=== PATIENT | male | born 1955 | race Caucasian/White ===

== ENCOUNTER 2019-08-08 20:06 | Inpatient (IN) | payer SELFPAY ==
[~2019-08-08] VITALS: Ht 180.3 cm; Wt 143.6 kg
[~2019-08-08 20:06] MED LIST: ALLO300 PO; ASPI81CH PO; BACL10 PO; CAPHYD PO; CYCL10 PO; HYDCHL25 PO; IBUHYD PO; IBUP800 PO; LISI20 PO; NAPR500 PO; Norco 5-325 Ta1 EACH PO; RANI150 PO; TESTOSTERONE SQ; TESTTP TOP; TRAZ50 PO; Zestril40 MG PO
[2019-08-08 20:59] LABS: BASOPHILS ABSOLUTE AUTO 0.02 K/mm3 (0.00-0.23); BASOPHILS PERCENT AUTO 0 % (0-2); EOSINOPHILS ABSOLUTE AUTO 0.19 K/mm3 (0.00-0.68); EOSINOPHILS PERCENT AUTO 2 % (0-6); Hematocrit 47.7 % (37.0-53.0); Hemoglobin 15.6 g/dL (13.5-17.5); IMMATURE GRAN ABSOLUTE AUTO 0.02 K/mm3 (0.00-0.10); IMMATURE GRAN PERCENT AUTO 0 % (0-1); LYMPHOCYTES ABSOLUTE AUTO 3.91 K/mm3 (0.84-5.20); LYMPHOCYTES PERCENT AUTO 44 % (21-46); MONOCYTES ABSOLUTE AUTO 0.79 K/mm3 (0.16-1.47); MONOCYTES PERCENT AUTO 9 % (4-13); Mean Corpuscular HGB 31.6 pg (26.0-34.0); Mean Corpuscular HGB Conc 32.7 g/dL (31.5-36.5); Mean Corpuscular Volume 97 fL (80-100); Mean Platelet Volume 11.1 fL (9.1-12.4); NEUTROPHILS ABSOLUTE AUTO 4.03 K/mm3 (1.96-9.15); NEUTROPHILS PERCENT AUTO 45 % (41-73); Platelet Count 213 K/mm3 (150-400); RDW Coefficient Variation 13.2 % (11.7-14.2); RDW Standard Deviation 47.1 fL (35.1-46.3); Red Blood Cell Count 4.93 M/mm3 (4.30-5.90); White Blood Cell Count 8.96 K/mm3 (4.00-11.30)
[2019-08-08 21:21] LABS: Alanine Aminotransfer (ALT/SGP 46 U/L (12-78); Albumin, Blood 3.6 g/dL (3.4-5.0); Albumin/Globulin Ratio 0.8 (0.8-1.8); Alk Phos 118 U/L (50-136); Anion Gap 6 mmol/L (6-16); Aspartate Aminotrans (AST/SGOT 34 U/L (12-37); Bilirubin, Total 0.5 mg/dL (0.1-1.0); Blood Urea Nitrogen 12 mg/dL (8-24); Bun/Creatinine Ratio 13.2 (12.0-20.0); CO2, Blood 26 mmol/L (21-32); Calcium, Blood 9.4 mg/dL (8.5-10.1); Chloride, Blood 110 mmol/L (98-108); Creatinine, Blood 0.91 mg/dL (0.60-1.20); Globulin, Blood 4.3 g/dL (2.2-4.0); Glomerular Filtration Rate >60 (60-); Glucose, Blood 113 mg/dL (70-99); Potassium, Blood 3.5 mmol/L (3.5-5.5); Sodium, Blood 142 mmol/L (136-145); Total Protein, Blood 7.9 g/dL (6.4-8.2)
[2019-08-09 00:16] LABS: International Normalized Ratio 0.94; Prothrombin Time Results 10.1 Sec (9.7-11.5)
[2019-08-09 02:56] LABS: Anion Gap 5 mmol/L (6-16); Blood Urea Nitrogen 12 mg/dL (8-24); Bun/Creatinine Ratio 13.5 (12.0-20.0); CHOL/HDL RATIO 3.5; CO2, Blood 28 mmol/L (21-32); Calcium, Blood 9.2 mg/dL (8.5-10.1); Chloride, Blood 108 mmol/L (98-108); Cholesterol 154 mg/dL (50-200); Creatinine, Blood 0.89 mg/dL (0.60-1.20); Glomerular Filtration Rate >60 (60-); Glucose, Blood 96 mg/dL (70-99); HDL Cholesterol 44 mg/dL (>39); LDL/HDL RATIO 2.1; Low Density Lipoprotein Chol 92 mg/dL (0-110); Potassium, Blood 3.5 mmol/L (3.5-5.5); Sodium, Blood 141 mmol/L (136-145); Triglycerides 91 mg/dL (30-160); Very Low Density Lipoprot Chol 18 mg/dL (6-32)
== END 2019-08-09 15:30 | disposition short-term general hospital (02) | DRG 281 ==
LOC: ER 20:06 → ICUW 23:29 → ER 08-09 00:02 → ICUW 08-09 00:05
PROVIDERS: Physician Assistant; ADMIT Hospitalist
PROC: B2110ZZ Fluoroscopy of Multiple Coronary Arteries using High Osmolar Contrast (ICD-10-PCS; principal; 2019-08-09)
DX: I21.4 Non-ST elevation (NSTEMI) myocardial infarction (principal); Z68.42 Body mass index [BMI] 45.0-49.9, adult; M10.9 Gout, unspecified; I10 Essential (primary) hypertension; E66.01 Morbid (severe) obesity due to excess calories; E78.5 Hyperlipidemia, unspecified; M25.562 Pain in left knee; N20.0 Calculus of kidney; I25.10 Atherosclerotic heart disease of native coronary artery without angina pectoris; Z87.891 Personal history of nicotine dependence; Z91.14 Patient's other noncompliance with medication regimen
CPT/HCPCS: 36415; 71046; 73562-LT; 76937; 80048; 80053; 80061; 83036; 84484; 84550; 85025; 85347; 85610; 85730; 90686; 93005; 93010; 93306; 93454; 99152; 99153; 99284-25; A9270; C1769; C1894; G0008; J0360; J1644; J2250; J3010; J7030; J7040; Q9967

== ENCOUNTER 2020-02-27 19:14 | Emergency (ER) | payer SELFPAY ==
[~2020-02-27] VITALS: Ht 180.3 cm; Wt 145.2 kg
== END 2020-02-27 21:00 | disposition home or self-care (01) ==
LOC: ER 19:14
DX: S81.812A Laceration without foreign body, left lower leg, initial encounter (principal); Z88.5 Allergy status to narcotic agent; Z88.8 Allergy status to other drugs, medicaments and biological substances; Z79.899 Other long term (current) drug therapy; J44.9 Chronic obstructive pulmonary disease, unspecified; I10 Essential (primary) hypertension; E78.5 Hyperlipidemia, unspecified; Z87.891 Personal history of nicotine dependence; Z23 Encounter for immunization; W20.8XXA Other cause of strike by thrown, projected or falling object, initial encounter
CPT/HCPCS: 12002; 73590; 90471; 90714; 99283-25

== ENCOUNTER 2020-04-03 21:53 | Observation (INO) | payer OTHER ==
[~2020-04-03] VITALS: Ht 180.3 cm; Wt 150.5 kg
[2020-04-03 22:46] LABS: Source, Urine Clean Catch
[2020-04-03 22:48] LABS: Bilirubin, Urine Neg (Neg); Blood, Urine 4+ (Neg); Glucose Qualitative, Urine Neg (Neg); Ketones, Urine Neg (Neg); Leukocyte Esterase, Urine 1+ (Neg); Nitrite, Urine Neg (Neg); Protein, Urine Neg (Neg); Urobilinogen, Urine NORM (Normal)
[2020-04-03 22:49] LABS: Appearance, Urine Clear (Clear); Color, Urine Yellow (P-Yellow)
[2020-04-03 22:55] LABS: Bacteria Few /hpf; Red Blood Cells, Urine 0-2 /hpf (0-2); Squamous Epithelial Cells Not Seen /hpf (Few)
[2020-04-03 23:09] LABS: BASOPHILS ABSOLUTE AUTO 0.03 K/mm3 (0.00-0.23); BASOPHILS PERCENT AUTO 0 % (0-2); EOSINOPHILS ABSOLUTE AUTO 0.34 K/mm3 (0.00-0.68); EOSINOPHILS PERCENT AUTO 3 % (0-6); Hematocrit 40.7 % (37.0-53.0); Hemoglobin 13.1 g/dL (13.5-17.5); IMMATURE GRAN ABSOLUTE AUTO 0.02 K/mm3 (0.00-0.10); IMMATURE GRAN PERCENT AUTO 0 % (0-1); LYMPHOCYTES ABSOLUTE AUTO 4.83 K/mm3 (0.84-5.20); LYMPHOCYTES PERCENT AUTO 45 % (21-46); MONOCYTES ABSOLUTE AUTO 0.96 K/mm3 (0.16-1.47); MONOCYTES PERCENT AUTO 9 % (4-13); Mean Corpuscular HGB Conc 32.2 g/dL (31.5-36.5); Mean Corpuscular Volume 100 fL (80-100); Mean Platelet Volume 11.2 fL (9.1-12.4); NEUTROPHILS PERCENT AUTO 43 % (41-73); Platelet Count 192 K/mm3 (150-400); RDW Coefficient Variation 13.6 % (11.7-14.2); RDW Standard Deviation 49.7 fL (35.1-46.3); Red Blood Cell Count 4.09 M/mm3 (4.30-5.90); White Blood Cell Count 10.78 K/mm3 (4.00-11.30)
[2020-04-03 23:26] LABS: Alanine Aminotransfer (ALT/SGP 32 U/L (12-78); Albumin, Blood 3.5 g/dL (3.4-5.0); Albumin/Globulin Ratio 0.9 (0.8-1.8); Alk Phos 141 U/L (50-136); Anion Gap 5 mmol/L (6-16); Aspartate Aminotrans (AST/SGOT 23 U/L (12-37); Bilirubin, Total 0.8 mg/dL (0.1-1.0); Blood Urea Nitrogen 16 mg/dL (8-24); Bun/Creatinine Ratio 15.7 (12.0-20.0); CO2, Blood 26 mmol/L (21-32); Calcium, Blood 9.7 mg/dL (8.5-10.1); Chloride, Blood 112 mmol/L (98-108); Creatinine, Blood 1.02 mg/dL (0.60-1.20); Globulin, Blood 4.1 g/dL (2.2-4.0); Glomerular Filtration Rate >60 (60-); Glucose, Blood 92 mg/dL (70-99); Potassium, Blood 3.9 mmol/L (3.5-5.5); Sodium, Blood 143 mmol/L (136-145); Total Protein, Blood 7.6 g/dL (6.4-8.2)
[2020-04-03] MEDS ORDERED: Carvedilol25 MG PO (23:38)
[2020-04-03] MEDS ORDERED: ATOR20 PO (23:38)
[2020-04-04] MEDS ORDERED: FUROSEMIDE40 MG PO (00:42)
[2020-04-04] MEDS ORDERED: Klor-Con 1010 MEQ PO (00:43)
[2020-04-04] MEDS ORDERED: AMLODIPINE BESYL5 MG PO (00:46)
[2020-04-04 00:47] LABS: CHOL/HDL RATIO 3.1; Cholesterol 120 mg/dL (50-200); HDL Cholesterol 39 mg/dL (>39); LDL/HDL RATIO 1.6; Low Density Lipoprotein Chol 62 mg/dL (0-110); Triglycerides 97 mg/dL (30-160); Very Low Density Lipoprot Chol 19 mg/dL (6-32)
--- NOTE | 2020-04-04 03:00 | NUR ---
PT TO ICU 8 VIA [facility] WITH ED RN @ 0127, PT ALERT AND ORIENTED, AMBULATES WITH SBA FROM [facility] TO HOSPITAL BED. O2 SATURATIONS> 90% ON RA, PT REPORTS WEARING CPAP AT NIGHT FOR SLEEP APNEA, CALL PLACED TO RT FOR HOSPITAL CPAP SET UP. MONITOR SHOWS SINUS RHYTHM WIHT FREQUENT PVC'S AND OCCASIONAL BIGIMENY. PT MEDICATED WITH 10mg LABETALOL FOR HTN. PT WITH BLE SWELLING, MORE SIGNIFICANT TO R LEG, PT REPORTS THIS HAS BEEN NORMAL WITH NUMBNESS TO R LOWER LEG SINCE HEART SURGERY IN AUGUST. DRESSING TO L FAITH OVER WOUND PT STS OCCURED IN JANUARY, WAS SCENE IN ED, WOUND SUTURED AT THAT TIME. PT FOLLOWED UP WITH PCP FOR SUTURE REMOVAL, PT STS A SCAB OVER THE WOUND WAS ACCIDENTLY TAKEN OFF AT THAT TIME AND HAS SINCE BEEN SLOW TO HEAL, PT HAS BEEN DOING HIS OWN WOUND CARE. DRESSING REMOVED WITH SIGNIFICANT AMOUNT OF YELLOW PURULENT DRAINAGE, CALL PLACED TO JONO, ORDER FOR WOUND CULTURE. WOUND CLEANED WITH SKINTEGRITY AND ABSORBANT FOAM DRESSING WITH TAPE APPLIED, SEE PHOTO IN PTS CHART. CALL LIGHT WITHIN REACH.
--- NOTE | 2020-04-04 06:22 | NUR ---
SHIFT SUMMARY PT REMAINS STABLE T/O NIGHT, PT PLACED CPAP ON SELF FOR SLEEP. MONITOR SHOWS DECREASED ECTOPY, PT IN SINUS RHYTHM WITH PVC'S, BP DECREASED AND STABLE, NITRO GTT NOT INDICATED THIS SHIFT. PT TOLERATES PO INTAKE, VOIDS INDEPENDENTLY AND AMBULATES WITH SBA. CALL LIGHT WITHIN REACH, PT USING APPROPRIATELY.
--- NOTE | 2020-04-04 08:00 | NUR ---
INITIAL ASSESSMENT PATIENT RESTING QUIETLY IN BED UPON ENTERING ROOM. PATIENT ALERT AND ORIENTED X 4, AFEBRILE. CALM, PLEASANT AND COOPERATIVE. PATIENT DENIES PAIN. PATIENT REPORTS N/T IN R LEG BUT STATES THAT IT HAS BEEN THIS WAY SINCE THEY TOOK A VESSEL FOR HIS CABG IN AUGUST. PATIENT SBA ONLY BECAUSE OF LINES AND CORDS. PATIENT SATTING 90% AND GREATER ON RA. PATIENT ABLE TO PLACE OWN CPAP FOR SLEEP. PATIENT IN SR WITH PVCS. HR 60S TO 70S. SBP LOW 100S TO 120S. 1+ EDEMA NOTED IN BLES. ABDOMEN MODERATELY DISTENDED; PATIENT STATES NORMAL. PATIENT STATES HE HAS URINARY FREQUENCY SINCE HAVING KIDNEY STONES. URINE DARK YELLOW IN COLOR. WOUND TO L FAITH. 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 NIGHT RN REPORTED THAT WOUND DRAINING A LOT. DRESSING CLEAN, DRY AND INTACT AT THIS TIME. IVS FLUSHED AND SALINE LOCKED. BED LOW, CALL LIGHT IN REACH. WILL CONTINUE TO MONITOR FREQUENTLY THROUGHOUT SHIFT.
--- NOTE | 2020-04-04 12:45 | NUR ---
HR 60S TO 70S. SBP 140S TO 150S. NO ACUTE CHANGES TO NOTE ON. NO COMPLAINTS.
[2020-04-04] MEDS ORDERED: ASPI81CH PO (12:49)
--- NOTE | 2020-04-04 13:28 | NUR ---
PATIENT REMAINED ALERT AND ORIENTED X 4, AFEBRILE. PATIENT HAD NO COMPLAINTS OF PAIN DURING SHIFT. PATIENT REMAINED SATTING 90% AND GREATER ON RA. PATIENT REMAINED IN SR WITH PVCS, HR 60S TO 70S. SBP LOW 100S TO 150S. NO BM THIS SHIFT. PATIENT HAD GOOD APPETITE. PATIENT VOIDED ADEQUATE AMOUNT OF DARK YELLOW COLORED URINE. NO CHANGE TO WOUND OR DRESSING ON L FAITH. IVS REMOVED. PATIENT GIVEN DISCHARGE INFORMATION AND EDUCATION. PATIENT STATED THAT HE UNDERSTOOD ALL INFORMATION. PICKING PATIENT UP. PATIENT TAKEN OUT IN WHEELCHAIR BY SECTION LABORER. ALL BELONGINGS TAKEN WITH PATIENT. DISCHARGE COMPLETE.
== END 2020-04-04 13:30 | disposition home or self-care (01) ==
LOC: ER 21:53 → ICUW 21:54 → ICUE 21:54
PROVIDERS: Emergency Medicine; ADMIT Family Medicine
DX: I16.0 Hypertensive urgency (principal); I63.9 Cerebral infarction, unspecified; J44.9 Chronic obstructive pulmonary disease, unspecified; I10 Essential (primary) hypertension; I25.10 Atherosclerotic heart disease of native coronary artery without angina pectoris; E78.5 Hyperlipidemia, unspecified; G47.33 Obstructive sleep apnea (adult) (pediatric); E66.01 Morbid (severe) obesity due to excess calories; I65.23 Occlusion and stenosis of bilateral carotid arteries; D64.9 Anemia, unspecified; I49.3 Ventricular premature depolarization; Z95.1 Presence of aortocoronary bypass graft; Z79.82 Long term (current) use of aspirin; Z88.5 Allergy status to narcotic agent; Z88.8 Allergy status to other drugs, medicaments and biological substances; Z79.899 Other long term (current) drug therapy; Z87.891 Personal history of nicotine dependence
CPT/HCPCS: 36415; 70450; 80053; 80061; 81001; 85025; 87070; 87075; 87086; 87205; 93005; 93010; 93880; 94660; 99285-25; A9270-GY; G0378; J0360; J1650

== ENCOUNTER 2020-06-30 19:01 | Observation (INO) | payer OTHER ==
[~2020-06-30] VITALS: Ht 182.9 cm; Wt 160.1 kg
[~2020-06-30 19:01] MED LIST changes: +AMLODIPINE BESYL5 MG PO; +ATOR20 PO; +CARV25 PO; +FUROSEMIDE40 MG PO; +Klor-Con 1010 MEQ PO; -Zestril40 MG PO
[2020-06-30 19:15] LABS: BASOPHILS ABSOLUTE AUTO 0.02 K/mm3 (0.00-0.23); BASOPHILS PERCENT AUTO 0 % (0-2); EOSINOPHILS ABSOLUTE AUTO 0.27 K/mm3 (0.00-0.68); EOSINOPHILS PERCENT AUTO 2 % (0-6); Hematocrit 43.7 % (37.0-53.0); Hemoglobin 13.9 g/dL (13.5-17.5); IMMATURE GRAN ABSOLUTE AUTO 0.03 K/mm3 (0.00-0.10); IMMATURE GRAN PERCENT AUTO 0 % (0-1); LYMPHOCYTES ABSOLUTE AUTO 5.17 K/mm3 (0.84-5.20); LYMPHOCYTES PERCENT AUTO 41 % (21-46); MONOCYTES ABSOLUTE AUTO 1.02 K/mm3 (0.16-1.47); MONOCYTES PERCENT AUTO 8 % (4-13); Mean Corpuscular HGB 31.7 pg (26.0-34.0); Mean Corpuscular HGB Conc 31.8 g/dL (31.5-36.5); Mean Corpuscular Volume 100 fL (80-100); Mean Platelet Volume 11.2 fL (9.1-12.4); NEUTROPHILS ABSOLUTE AUTO 6.24 K/mm3 (1.96-9.15); NEUTROPHILS PERCENT AUTO 49 % (41-73); Platelet Count 208 K/mm3 (150-400); RDW Coefficient Variation 13.4 % (11.7-14.2); RDW Standard Deviation 49.5 fL (35.1-46.3); Red Blood Cell Count 4.39 M/mm3 (4.30-5.90); White Blood Cell Count 12.75 K/mm3 (4.00-11.30)
[2020-06-30 19:31] LABS: International Normalized Ratio 0.96; Prothrombin Time Results 10.3 Sec (9.7-11.5)
[2020-06-30 19:36] LABS: Alanine Aminotransfer (ALT/SGP 27 U/L (12-78); Albumin, Blood 3.6 g/dL (3.4-5.0); Albumin/Globulin Ratio 0.9 (0.8-1.8); Alk Phos 149 U/L (50-136); Anion Gap 8 mmol/L (6-16); Aspartate Aminotrans (AST/SGOT 27 U/L (12-37); Bilirubin, Total 0.8 mg/dL (0.1-1.0); Blood Urea Nitrogen 17 mg/dL (8-24); Bun/Creatinine Ratio 18.3 (12.0-20.0); CO2, Blood 24 mmol/L (21-32); Calcium, Blood 9.9 mg/dL (8.5-10.1); Chloride, Blood 113 mmol/L (98-108); Creatinine, Blood 0.93 mg/dL (0.60-1.20); Globulin, Blood 3.9 g/dL (2.2-4.0); Glomerular Filtration Rate >60 (60-); Glucose, Blood 105 mg/dL (70-99); Potassium, Blood 4.2 mmol/L (3.5-5.5); Sodium, Blood 145 mmol/L (136-145); Total Protein, Blood 7.5 g/dL (6.4-8.2)
[2020-06-30 20:20] LABS: Source, Urine Clean Catch
[2020-06-30 20:24] LABS: Bilirubin, Urine Neg (Neg); Blood, Urine 2+ (Neg); Glucose Qualitative, Urine Neg (Neg); Ketones, Urine Neg (Neg); Leukocyte Esterase, Urine 1+ (Neg); Nitrite, Urine Neg (Neg); Protein, Urine Neg (Neg); Urobilinogen, Urine NORM (Normal)
[2020-06-30 20:26] LABS: Appearance, Urine Clear (Clear); Color, Urine Yellow (P-Yellow)
[2020-06-30 20:30] LABS: Bacteria Few /hpf; Red Blood Cells, Urine 0-2 /hpf (0-2); Squamous Epithelial Cells Not Seen /hpf (Few)
[2020-06-30 20:31] LABS: Hyaline Casts 0-2 /lpf (0-2)
--- NOTE | 2020-07-01 00:34 | NUR ---
06/30/202229 Patient arived from the ER via stretcher. Pt is alert and oriented. Neuro check done. Pt eyes equal 2mm. Pt is able to lift left arm midway then uses his other arm to put it above his hed. 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 Pt is able to do push pulls, knee lifts and heel to knee bilaterally. Pt gets dizzy when HOB elevated for eating. Pt states he is left handed. Pt is bedrest at this time. Oriented to room. Call light is in reach. Pt uses CPAP at home, will notify RT. Will monitor.
--- NOTE | 2020-07-01 05:55 | NUR ---
Rn summary: Patient is alert and oriented. Pt has not rested this shift. Pt has been a bit restless. Pt is moving Left arm and fidgits with tele monitor. Pt still states his Left hand feels "weird". Pt has no facial droop. Pupils equal and small. Patient did try to use the urinal on his own and soaked the bed. Will need assist in the future. Pt states he has a mild headache this morning. Pt uses the call light appropriately. Will continue to monitor for changes.
--- NOTE | 2020-07-01 18:45 | NUR ---
PT DISCHARGED AT 1840 WITH NO DISTRESS NOTED. PT STILL HAS MILD WEAKNESS IN L ARM, BUT IS MUCH IMPROVED. PT WAS NOT ABLE TO HAVE AN MRI TODAY HE IS TO BIG TO FIT. DR CISNEROS WANTS PT TO HAVE MRI OUTPATIENT. ALL PAPERWORK REVIEWED AND EDUCATIONAL MATERIAL SENT WITH PT. NO DISTRESS NOTED.
== END 2020-07-01 18:40 | disposition home or self-care (01) ==
LOC: ER 19:01 → MEDS 19:02
PROVIDERS: Emergency Medicine; ADMIT Internal Medicine
DX: G45.9 Transient cerebral ischemic attack, unspecified (principal); I16.0 Hypertensive urgency; I10 Essential (primary) hypertension; E78.5 Hyperlipidemia, unspecified; J44.9 Chronic obstructive pulmonary disease, unspecified; I25.10 Atherosclerotic heart disease of native coronary artery without angina pectoris; G47.30 Sleep apnea, unspecified; E66.01 Morbid (severe) obesity due to excess calories; Z68.42 Body mass index [BMI] 45.0-49.9, adult; Z23 Encounter for immunization; Z88.5 Allergy status to narcotic agent; Z88.8 Allergy status to other drugs, medicaments and biological substances; Z91.09 Other allergy status, other than to drugs and biological substances; Z79.82 Long term (current) use of aspirin; Z79.899 Other long term (current) drug therapy; Z95.1 Presence of aortocoronary bypass graft; Z96.641 Presence of right artificial hip joint; Z87.891 Personal history of nicotine dependence
CPT/HCPCS: 70450; 70496; 70498; 80053; 81001; 85025; 85610; 85730; 93005; 93010; 94762; 96374-59; 96375; 97110; 97161; 99285-25; A9270-GY; G0008; G0378; Q2038; Q9967

== ENCOUNTER → 2020-07-10 | Outpatient (CLI) | payer OTHER ==
[2020-07-10 17:44] LABS: Appearance, Urine Clear (Clear); Bilirubin, Urine Neg (Neg); Blood, Urine 3+ (Neg); Color, Urine Yellow (P-Yellow); Glucose Qualitative, Urine Neg (Neg); Ketones, Urine Neg (Neg); Leukocyte Esterase, Urine 1+ (Neg); Nitrite, Urine Neg (Neg); Protein, Urine 1+ (Neg); Urobilinogen, Urine NORM (Normal)
[2020-07-10 18:19] LABS: Bacteria Rare /hpf; Red Blood Cells, Urine 0-2 /hpf (0-2); Squamous Epithelial Cells Rare /hpf (Few)
[2020-07-10 18:20] LABS: Calcium Oxalate Crystals Few /hpf
[2020-07-10 18:38] LABS: Free Thyroxine 0.85 ng/dL (0.70-1.60); Thyroid Stimulating Hormone 0.444 uIU/mL (0.360-4.800)
[2020-07-10 18:43] LABS: CHOL/HDL RATIO 2.8; Cholesterol 125 mg/dL (50-200); HDL Cholesterol 44 mg/dL (>39); LDL/HDL RATIO 1.5; Low Density Lipoprotein Chol 64 mg/dL (0-110); Triglycerides 84 mg/dL (30-160); Very Low Density Lipoprot Chol 16 mg/dL (6-32)
== END | disposition home or self-care (01) ==
LOC: LAB 16:28
PROVIDERS: Nurse Practitioner Family
DX: E78.5 Hyperlipidemia, unspecified (principal); E03.9 Hypothyroidism, unspecified; R31.9 Hematuria, unspecified
CPT/HCPCS: 80061; 81001; 84439; 84443; 84481; 86376; 87086

== ENCOUNTER → 2021-01-31 | Outpatient (CLI) | payer OTHER ==
[2021-01-31 19:13] LABS: CHOL/HDL RATIO 3.7; Cholesterol 118 mg/dL (50-200); HDL Cholesterol 32 mg/dL (>39); LDL/HDL RATIO 1.6; Low Density Lipoprotein Chol 50 mg/dL (0-110); Triglycerides 182 mg/dL (30-160); Very Low Density Lipoprot Chol 36 mg/dL (6-32)
[2021-01-31 22:14] LABS: Prostate Specific Antigen 0.819 ng/mL (0.000-4.000)
== END | disposition home or self-care (01) ==
LOC: LAB SHORT 16:18 → LAB 16:18
PROVIDERS: Nurse Practitioner Family
DX: Z12.5 Encounter for screening for malignant neoplasm of prostate (principal); E78.5 Hyperlipidemia, unspecified; R73.09 Other abnormal glucose
CPT/HCPCS: 80061; 83036; 84153

== ENCOUNTER → 2021-06-12 | Outpatient (CLI) | payer OTHER ==
[2021-06-12 17:52] LABS: Source, Urine Clean Catch
[2021-06-12 19:06] LABS: Appearance, Urine Cloudy (Clear); Bilirubin, Urine Neg (Neg); Blood, Urine 5+ (Neg); Color, Urine Brown (P-Yellow); Glucose Qualitative, Urine Neg (Neg); Ketones, Urine 1+ (Neg); Leukocyte Esterase, Urine 2+ (Neg); Nitrite, Urine Neg (Neg); Protein, Urine 3+ (Neg); Urobilinogen, Urine NORM (Normal)
[2021-06-12 19:53] LABS: Red Blood Cells, Urine TNTC /hpf (0-2)
[2021-06-12 19:54] LABS: Bacteria Few /hpf; Calcium Oxalate Crystals Few /hpf; Squamous Epithelial Cells Mod /hpf (Few)
== END | disposition home or self-care (01) ==
LOC: LAB SHORT 17:46 → LAB 17:46
PROVIDERS: Nurse Practitioner Family
DX: R31.9 Hematuria, unspecified (principal)
CPT/HCPCS: 81001; 87086

== ENCOUNTER → 2021-10-10 | Outpatient (CLI) | payer OTHER ==
[2021-10-10 18:45] LABS: Alanine Aminotransfer (ALT/SGP 48 U/L (12-78); Albumin, Blood 3.3 g/dL (3.4-5.0); Alk Phos 145 U/L (50-136); Anion Gap 5 mmol/L (6-16); Aspartate Aminotrans (AST/SGOT 33 U/L (12-37); Bilirubin, Total 1.3 mg/dL (0.1-1.0); Blood Urea Nitrogen 14 mg/dL (8-24); Bun/Creatinine Ratio 15.6 (12.0-20.0); CO2, Blood 25 mmol/L (21-32); Calcium, Blood 9.9 mg/dL (8.5-10.1); Chloride, Blood 109 mmol/L (98-108); Cholesterol 118 mg/dL (50-200); Globulin, Blood 3.4 g/dL (2.2-4.0); Glomerular Filtration Rate >60 (60-); Glucose, Blood 118 mg/dL (70-99); HDL Cholesterol 39 mg/dL (>39); LDL/HDL RATIO 1.4; Low Density Lipoprotein Chol 54 mg/dL (0-110); Potassium, Blood 4.2 mmol/L (3.5-5.5); Sodium, Blood 139 mmol/L (136-145); Thyroid Stimulating Hormone 0.177 uIU/mL (0.360-4.800); Total Protein, Blood 6.7 g/dL (6.4-8.2); Triglycerides 123 mg/dL (30-160); Very Low Density Lipoprot Chol 24 mg/dL (6-32)
== END | disposition home or self-care (01) ==
LOC: LAB SHORT 12:00 → LAB 12:00
PROVIDERS: Nurse Practitioner Family
DX: E03.9 Hypothyroidism, unspecified (principal); E78.5 Hyperlipidemia, unspecified
CPT/HCPCS: 80053; 80061; 84443

== ENCOUNTER → 2022-08-18 | Outpatient (CLI) | payer OTHER ==
[2022-08-18 17:52] LABS: BASOPHILS ABSOLUTE AUTO 0.03 K/mm3 (0.00-0.23); BASOPHILS PERCENT AUTO 0 % (0-2); EOSINOPHILS ABSOLUTE AUTO 0.23 K/mm3 (0.00-0.68); EOSINOPHILS PERCENT AUTO 2 % (0-6); Hematocrit 44.1 % (37.0-53.0); Hemoglobin 14.9 g/dL (13.5-17.5); IMMATURE GRAN ABSOLUTE AUTO 0.02 K/mm3 (0.00-0.10); IMMATURE GRAN PERCENT AUTO 0 % (0-1); LYMPHOCYTES ABSOLUTE AUTO 4.63 K/mm3 (0.84-5.20); LYMPHOCYTES PERCENT AUTO 41 % (21-46); MONOCYTES ABSOLUTE AUTO 0.93 K/mm3 (0.16-1.47); MONOCYTES PERCENT AUTO 8 % (4-13); Mean Corpuscular HGB 32.7 pg (26.0-34.0); Mean Corpuscular HGB Conc 33.8 g/dL (31.5-36.5); Mean Corpuscular Volume 97 fL (80-100); Mean Platelet Volume 11.2 fL (9.1-12.4); NEUTROPHILS ABSOLUTE AUTO 5.57 K/mm3 (1.96-9.15); NEUTROPHILS PERCENT AUTO 49 % (41-73); Platelet Count 214 K/mm3 (150-400); RDW Coefficient Variation 13.8 % (11.7-14.2); RDW Standard Deviation 49.1 fL (35.1-46.3); Red Blood Cell Count 4.55 M/mm3 (4.30-5.90); White Blood Cell Count 11.41 K/mm3 (4.00-11.30)
[2022-08-18 22:10] LABS: Free Thyroxine 0.81 ng/dL (0.70-1.60)
[2022-08-18 22:17] LABS: Alanine Aminotransfer (ALT/SGP 52 U/L (12-78); Albumin, Blood 3.3 g/dL (3.4-5.0); Albumin/Globulin Ratio 0.8 (0.8-1.8); Alk Phos 131 U/L (50-136); Anion Gap 5 mmol/L (6-16); Aspartate Aminotrans (AST/SGOT 36 U/L (12-37); Bilirubin, Total 1.1 mg/dL (0.1-1.0); Blood Urea Nitrogen 13 mg/dL (8-24); Bun/Creatinine Ratio 15.6 (12.0-20.0); CO2, Blood 23 mmol/L (21-32); Calcium, Blood 9.7 mg/dL (8.5-10.1); Chloride, Blood 111 mmol/L (98-108); Cholesterol 107 mg/dL (50-200); Creatinine, Blood 0.84 mg/dL (0.60-1.20); Glomerular Filtration Rate 97 (60-); Glucose, Blood 115 mg/dL (70-99); Potassium, Blood 3.8 mmol/L (3.5-5.5); Sodium, Blood 139 mmol/L (136-145); Total Protein, Blood 7.3 g/dL (6.4-8.2)
== END | disposition home or self-care (01) ==
LOC: LAB SHORT 11:07
PROVIDERS: Nurse Practitioner Family
DX: E78.5 Hyperlipidemia, unspecified (principal); E03.9 Hypothyroidism, unspecified; E55.9 Vitamin D deficiency, unspecified; R73.09 Other abnormal glucose; I10 Essential (primary) hypertension
CPT/HCPCS: 80053; 82306; 82465; 83036; 84439; 84443; 85025

== ENCOUNTER → 2023-01-14 | Outpatient (CLI) | payer MEDICARE, OTHER ==
[2023-01-14 18:38] LABS: Free Thyroxine 1.46 ng/dL (0.70-1.60)
[2023-01-14 18:43] LABS: Thyroid Stimulating Hormone <0.005 uIU/mL (0.360-4.800)
== END | disposition home or self-care (01) ==
LOC: LAB 16:21 → LAB SHORT 16:21
PROVIDERS: Nurse Practitioner Family
DX: E03.9 Hypothyroidism, unspecified (principal)
CPT/HCPCS: 84439; 84443

== ENCOUNTER → 2023-02-18 | Outpatient (CLI) | payer MEDICARE, OTHER ==
[2023-02-18 18:13] LABS: BASOPHILS ABSOLUTE AUTO 0.03 K/mm3 (0.00-0.23); BASOPHILS PERCENT AUTO 0 % (0-2); EOSINOPHILS ABSOLUTE AUTO 0.22 K/mm3 (0.00-0.68); EOSINOPHILS PERCENT AUTO 3 % (0-6); Hematocrit 45.2 % (37.0-53.0); Hemoglobin 14.9 g/dL (13.5-17.5); IMMATURE GRAN ABSOLUTE AUTO 0.02 K/mm3 (0.00-0.10); IMMATURE GRAN PERCENT AUTO 0 % (0-1); LYMPHOCYTES ABSOLUTE AUTO 3.66 K/mm3 (0.84-5.20); LYMPHOCYTES PERCENT AUTO 41 % (21-46); MONOCYTES ABSOLUTE AUTO 0.79 K/mm3 (0.16-1.47); MONOCYTES PERCENT AUTO 9 % (4-13); Mean Corpuscular Volume 97 fL (80-100); Mean Platelet Volume 11.7 fL (9.1-12.4); NEUTROPHILS ABSOLUTE AUTO 4.14 K/mm3 (1.96-9.15); NEUTROPHILS PERCENT AUTO 47 % (41-73); Platelet Count 177 K/mm3 (150-400); RDW Coefficient Variation 13.2 % (11.7-14.2); Red Blood Cell Count 4.65 M/mm3 (4.30-5.90); White Blood Cell Count 8.86 K/mm3 (4.00-11.30)
[2023-02-18 19:24] LABS: Alanine Aminotransfer (ALT/SGP 40 U/L (12-78); Albumin, Blood 3.4 g/dL (3.4-5.0); Albumin/Globulin Ratio 0.9 (0.8-1.8); Alk Phos 152 U/L (50-136); Anion Gap 8 mmol/L (6-16); Aspartate Aminotrans (AST/SGOT 30 U/L (12-37); Bilirubin, Total 0.7 mg/dL (0.1-1.0); Blood Urea Nitrogen 13 mg/dL (8-24); Bun/Creatinine Ratio 18.5 (12.0-20.0); CO2, Blood 22 mmol/L (21-32); Calcium, Blood 9.9 mg/dL (8.5-10.1); Chloride, Blood 111 mmol/L (98-108); Cholesterol 92 mg/dL (50-200); Free Thyroxine 1.52 ng/dL (0.70-1.60); Globulin, Blood 3.8 g/dL (2.2-4.0); Glomerular Filtration Rate 102 (60-); Glucose, Blood 120 mg/dL (70-99); Potassium, Blood 3.8 mmol/L (3.5-5.5); Sodium, Blood 141 mmol/L (136-145); Thyroid Stimulating Hormone 0.012 uIU/mL (0.360-4.800); Total Protein, Blood 7.2 g/dL (6.4-8.2); Triglycerides 107 mg/dL (30-160)
== END | disposition home or self-care (01) ==
LOC: LAB SHORT 10:44 → LAB 10:44
PROVIDERS: Nurse Practitioner Family
DX: E78.5 Hyperlipidemia, unspecified (principal); E55.9 Vitamin D deficiency, unspecified; E03.9 Hypothyroidism, unspecified; I10 Essential (primary) hypertension
CPT/HCPCS: 80053; 82306; 82465; 84439; 84443; 84478; 85025

== ENCOUNTER → 2023-03-12 | Outpatient (CLI) | payer MEDICARE, OTHER ==
[2023-03-19 12:09] LABS: BRUSHITE 4.53 ratio (0.00-3.00); CALCIUM OXALATE 10.06 ratio (0.00-6.00); CALCIUM, URINE 22.5 mg/dL (Not Estab.); CALCIUM, URINE 607.5 mg/24 hr (0.0-320.0); CHLORIDE URINE 205 (52-264); CITRIC ACID (CITRATE) 440 mg/L (Not Estab.); CITRIC ACID(CITRATE) 1188 mg/24 hr (320-1240); CREATININE, URINE 2100.6 mg/24 hr (1000.0-2000.0); CREATININE, URINE 77.8 mg/dL (Not Estab.); MAGNESIUM, URINE 4.2 mg/dL (Not Estab.); OSMOLALITY, URINE 392 (300-900); SODIUM, URINE 230 (58-337); SODIUM, URINE 85 mmol/L (Not Estab.); STRUVITE 0.02 ratio (0.00-1.00); URIC ACID 0.24 ratio (0.00-1.20); URINE VOLUME 2700 mL/24 hr (800-1800); URINE VOLUME (PRESERVATIVE) 2700 mL/24 hr (800-1800)
== END ==
LOC: LAB 12:11 → LAB SHORT 12:11
PROVIDERS: Urology
DX: N20.0 Calculus of kidney (principal)
CPT/HCPCS: 81050

== ENCOUNTER → 2023-04-15 | Outpatient (CLI) | payer MEDICARE, OTHER ==
[2023-04-15 19:43] LABS: Free Thyroxine 1.37 ng/dL (0.70-1.60)
[2023-04-15 19:46] LABS: Thyroid Stimulating Hormone 0.021 uIU/mL (0.360-4.800)
== END | disposition home or self-care (01) ==
LOC: LAB SHORT 17:08 → LAB 17:08
PROVIDERS: Nurse Practitioner Family
DX: E03.9 Hypothyroidism, unspecified (principal)
CPT/HCPCS: 84439; 84443

== ENCOUNTER 2024-10-14 14:35 | Emergency (ER) | payer MEDICARE ==
[~2024-10-14] VITALS: Ht 180.3 cm; Wt 167.8 kg
[2024-10-14 19:00] VITALS: BP 157/74
== END 2024-10-14 19:05 | disposition other institution (70) ==
LOC: ER 14:35
DX: S76.111A Strain of right quadriceps muscle, fascia and tendon, initial encounter (principal); S76.011A Strain of muscle, fascia and tendon of right hip, initial encounter; E78.5 Hyperlipidemia, unspecified; J44.9 Chronic obstructive pulmonary disease, unspecified; I10 Essential (primary) hypertension; W07.XXXA Fall from chair, initial encounter; Z87.891 Personal history of nicotine dependence; Z79.82 Long term (current) use of aspirin; Z79.899 Other long term (current) drug therapy; Z88.5 Allergy status to narcotic agent; Z91.048 Other nonmedicinal substance allergy status
CPT/HCPCS: 73502; 99283-25

== ENCOUNTER → 2025-05-16 | Outpatient (CLI) | payer MEDICARE ==
[~2025-05-16] MED LIST changes: +Avapro300 MG PO; +BUPR150ER PO; +Clotrimazole-Be15 GM; +GABA300 PO; +LEVSOD112 PO; +METF500 PO; +METO25ER PO
== END ==
LOC: LAB SHORT 17:18 → LAB 17:18
DX: E21.3 Hyperparathyroidism, unspecified (principal); R73.9 Hyperglycemia, unspecified
CPT/HCPCS: 83036; 83970

== ENCOUNTER → 2025-07-12 | Outpatient (CLI) | payer MEDICARE ==
[2025-07-12 19:06] LABS: Alanine Aminotransfer (ALT/SGP 41.0 U/L (12-78); Albumin, Blood 3.6 g/dL (3.4-5.0); Albumin/Globulin Ratio 0.9 (0.8-1.8); Anion Gap 7.0 mmol/L (3-11); Aspartate Aminotrans (AST/SGOT 25.0 U/L (12-37); Bilirubin, Total 1.2 mg/dL (0.1-1.0); Blood Urea Nitrogen 15.0 mg/dL (8-24); CO2, Blood 27.0 mmol/L (21-32); Calcium, Blood 10.3 mg/dL (8.5-10.1); Chloride, Blood 107.0 mmol/L (98-108); Creatinine, Blood 0.96 mg/dL (0.60-1.20); Globulin, Blood 3.9 g/dL (2.2-4.0); Glucose, Blood 122.0 mg/dL (70-99); Potassium, Blood 4.0 mmol/L (3.5-5.5); Sodium, Blood 137.0 mmol/L (136-145); Thyroid Stimulating Hormone 0.701 uIU/mL (0.360-4.800); Total Protein, Blood 7.5 g/dL (6.4-8.2)
[2025-07-15 07:40] LABS: VITAMIN D,1,25-DIHYDROXY 79.3 pg/mL (19.9-79.3)
== END ==
LOC: LAB 16:35 → LAB SHORT 16:35
PROVIDERS: Family Medicine
DX: E03.9 Hypothyroidism, unspecified (principal); E21.3 Hyperparathyroidism, unspecified
CPT/HCPCS: 80053; 82306; 82652; 83970; 84439; 84443